=== PATIENT | male | born 1965 | race Caucasian/White ===

== ENCOUNTER → 2024-08-12 14:44 | Outpatient (REF) | payer OTHER, SELFPAY | LOC: HWRCS 14:44 | PROVIDERS: ATTENDING PHYSICIAN Nurse Practitioner Gerontology; FAMILY PHYSICIAN Physician Assistant Medical | DX: R07.9 Chest pain, unspecified (principal); I25.10 Atherosclerotic heart disease of native coronary artery without angina pectoris | CPT/HCPCS: 93306 ==

== ENCOUNTER 2024-11-22 09:52 | Day surgery (SDC) | payer OTHER, SELFPAY ==
[2024-11-22] VITALS (17 sets, daily range): BP systolic 124–147; BP diastolic 70–91; BMI 28.5
[2024-11-22 10:36] LABS: Glucose - Point of Care 225 mg/dl (70-99)
[2024-11-22 11:46] LABS: ACT-LR - POC 356 Seconds (116-155)
[2024-11-22 13:08] LABS: Glucose - Point of Care 180 mg/dl (70-99)
--- NOTE | 2024-11-22 14:46 | ITS.CL.PN ---
Insurance Specialist - Procedure Note
Procedure
Procedure Note:
CARDIAC CATHETERIZATION REPORT
Date of Procedure: 11/22/2024
Referring: Dr. Brian Huynh MD
Indication: anginal chest pain
PROCEDURE(S)
1. left heart catheterization
2. coronary angiography
3. Shockwave lithotripsy LCx
4. Intravascular ultrasound LCx
5. PCI with CARLOS to LCx
ACCESS: 6F right radial artery (closure: radial band)
CATHETERS
1. 6F JR4
2. 6F JL3.5
3. 6F XB3.5 guide
MODERATE SEDATION: 60 minutes of moderate sedation was utilized. An independent medical tech was present to assist with and help manage the patient's level of consciousness and physiologic status.
HEMODYNAMIC DATA
LV 125/6 (EDP 10) mmHg
AO 115/70 (mean 87) mmHg
CORONARY ANGIOGRAPHY
Dominance: left
LM: large, normal
LAD: large vessel giving rise to a moderate caliber branching D1 and small D2. There are patent stents in the proximal to mid LAD spanning the D1 as well as in the distal LAD. There is mild ISR in the mid LAD stent. There is focal moderate disease
at the ostium of the D1.
LCx: large vessel giving rise to a large caliber OM1, small LPL, and small LPDA. There is a focal 95% stenosis in the proximal circumflex before the takeoff of OM1 with heavy calcification noted.
RCA: small and nondominant
PCI with CARLOS to LCx with Shockwave lithotripsy and IVUS-guidance
Heparin was given to achieve ACT greater than 300 seconds. The left main was engaged with a XB 3.5 guide catheter and a Runthrough wire placed in the LPL branch. Initial lesion preparation was performed with a 2.5 x 12 mm semicompliant balloon which
was mildly difficult to deliver. IVUS was performed which demonstrated a 4.0 mm distal reference vessel diameter 4.5 mm proximal reference vessel diameter with severe concentric calcification at the lesion site. Shockwave lithotripsy was performed
with a 3.5 mm shockwave balloon with 80 total pulses delivered with full expansion. Delivery of the shockwave balloon required use of a guide liner. Following Shockwave lithotripsy there was noted to be improvement in the lesion appearance. A 4.0x18
mm [place] drug-eluting stent was delivered and deployed at nominal pressure followed by post dilation with a 4.0x12 non compliant balloon taken to high-pressure. Repeat IVUS demonstrated mild underexpansion at the site of most severe
calcification with MLA 9 mm� and mild undersizing of the proximal edge. Thus, further postdilation was performed with a 4.5 x 12 NC taken to high pressure in the mid stent and nominal pressure at the proximal stent edge. Final angiographic result
was excellent. The wire and guide were removed and a TR band placed. The patient was loaded with 600 mg of Plavix.
RADIATION: dose 1160.17 mGy; DAP 52.8085 Gy*cm2; fluoroscopy time 17.0 min
CONCLUSIONS
1. Coronary artery disease as described in a right dominant system with severe focal calcific disease in the proximal dominant circumflex.
2. Successful IVUS guided and Shockwave lithotripsy facilitated PCI with CAROLS to proximal circumflex (4.0 x 18 mm [place] CARLOS postdilated to 4.5 mm)
RECOMMENDATIONS
1. Aggressive secondary prevention of coronary artery disease
2. DAPT with aspirin and Plavix for at least 6 months, but given low bleeding risk, young age, and diffuse coronary disease, reasonable to consider extended DAPT.
Copy to: Dr. Brian Huynh MD (lubricating specialist); MADELAINE Tobar (PCP)
Signed: Minesh Solares MD, PhD
--- NOTE | 2024-11-22 15:46 | W.PN.UPDATE ---
Update Note
Progress Note Update
58 yo WM s/p PCI and lithotripsy of LCX (Same day). He denies cp, sob, alicia diet, voiding, EKG SR no ST changes R rad site with TR band, scant ecchymosis. He will be on DAPT ASA/Plavix. Activity restrictions reviewed. Cardiac rehab c/s. He will f/u
[facility] in 2 weeks. He is for d/c home after 5pm if rad site stable.
CONCLUSIONS
1. Coronary artery disease as described in a right dominant system with severe focal calcific disease in the proximal dominant circumflex.
2. Successful IVUS guided and Shockwave lithotripsy facilitated PCI with CARLOS to proximal circumflex (4.0 x 18 mm [place] CARLOS postdilated to 4.5 mm)
== END 2024-11-22 17:10 | disposition home or self-care (01) ==
LOC: CATH 09:52
PROVIDERS: ATTENDING PHYSICIAN Student in an Organized Health Care Education/Training Program; FAMILY PHYSICIAN Physician Assistant Medical; OTHER PHYSICIAN Internal Medicine Cardiovascular Disease
DX: I25.119 Atherosclerotic heart disease of native coronary artery with unspecified angina pectoris (principal); K21.9 Gastro-esophageal reflux disease without esophagitis; E11.22 Type 2 diabetes mellitus with diabetic chronic kidney disease; I12.9 Hypertensive chronic kidney disease with stage 1 through stage 4 chronic kidney disease, or unspecified chronic kidney disease; N18.9 Chronic kidney disease, unspecified
CPT/HCPCS: 92972; 92978; 99152; 99153; C1761; 82962; 85347; 93005; 93458; C1725; C1753; C1874; C1887; C1894; C9600; Q9967